=== PATIENT | male | born 1995 | race Caucasian/White ===

== ENCOUNTER 2018-12-12 04:22 | Emergency (ER) | payer MEDICAID, OTHER ==
[~2018-12-12] VITALS: Ht 185.4 cm; Wt 83.7 kg
[2018-12-12 04:24] VITALS: BP 144/84
--- NOTE | 2018-12-12 05:10 | NUR ---
pt back from [facility]. pt sleeping in [facility] at this time; luzmaria
--- NOTE | 2018-12-12 05:41 | NUR ---
pt d/c with d/c summary and scripts. all questions answered. pt verbalizes understanding of joint exercises and f/u with orthopedic surgeon with preferral provided on d/c summary. pt calling friend for ride home per pt. pt denies any other needs pertaining to this visit.
== END 2018-12-12 05:46 | disposition home or self-care (01) ==
LOC: ED 05:30
DX: S46.011A Strain of muscle(s) and tendon(s) of the rotator cuff of right shoulder, initial encounter (principal); F10.120 Alcohol abuse with intoxication, uncomplicated; X37.1XXA Tornado, initial encounter; Y93.89 Activity, other specified; Y92.59 Other trade areas as the place of occurrence of the external cause; Y99.8 Other external cause status; Y90.9 Presence of alcohol in blood, level not specified
CPT/HCPCS: 99283